=== PATIENT | male | born 1990 | race Caucasian/White ===

== ENCOUNTER 2020-06-23 05:03 | Emergency (ER) | payer BC ==
[~2020-06-23] VITALS: Ht 162.6 cm; Wt 66.0 kg
[~2020-06-23 05:03] MED LIST: VALA100031 PO
[2020-06-23 05:08] VITALS: BP 138/84
== END 2020-06-23 05:47 | disposition home or self-care (01) ==
LOC: ER 05:04
DX: K04.7 Periapical abscess without sinus (principal); K08.89 Other specified disorders of teeth and supporting structures; F17.200 Nicotine dependence, unspecified, uncomplicated; Z79.2 Long term (current) use of antibiotics
CPT/HCPCS: 99281